=== PATIENT | male | born 1960 | race Caucasian/White ===

== ENCOUNTER 2021-06-08 23:39 | Inpatient (IN) | payer BC ==
[2021-06-09] MEDS ORDERED: cefTRIAXone 2 GM Vial IV ONE
[2021-06-09] MEDS ORDERED: Sodium Chloride 0.9% 1,000 ML IV ONE
[2021-06-09 00:28] LABS: ANION GAP 9.6 meq/L (7-15); CHLORIDE,CL 105 mmol/L (98-107); SODIUM,NA 140 mmol/L (136-145)
[2021-06-09 00:32] LABS: CORONAVIRUS COVID-19 NAA NEGATIVE (NEGATIVE); RESPIRATORY SYNCYTIAL VIR NAA NEGATIVE (NEGATIVE)
[2021-06-09] MEDS ORDERED: Polyethylene Glycol 3350 Powder 17 GM Packet PO PRN (01:55)
[2021-06-09] MEDS ORDERED: Ondansetron 4 MG Tab.DIS PO PRN (01:55)
[2021-06-09] MEDS ORDERED: Albuterol/Ipratropium 3.0-0.5 MG/3 ML Neb Soln NEB PRN (01:55)
[2021-06-09] MEDS ORDERED: VANCOmycin 1.75 GM/350 ML 1.75 GM in Premix Bag 1 BAG IV SCH (02:00)
[2021-06-09] MEDS: Furosemide 40 MG/4 ML VIAL IVPUSH SCH ×3 (02:25→17:45)
[2021-06-09] MEDS: Sodium Chloride 0.9% 10 ML Syringe FLUSH PRN (02:26)
[2021-06-09] MEDS ORDERED: AMLODIPINE PO SCH (08:00)
[2021-06-09] MEDS ORDERED: Non-Formulary Medication 1 Each (Metoprolol Succinate [Metoprolol Succinate] 100 MG Tab.Er PO SCH (08:00)
[2021-06-09] MEDS ORDERED: BENAZEPRIL PO SCH (08:00)
[2021-06-09] MEDS ORDERED: Non-Formulary Medication 1 Each (Rivaroxaban [Xarelto] 20 MG Tablet) PO SCH (08:00)
[2021-06-09 08:03] LABS: ANION GAP 10.2 meq/L (7-15); CHLORIDE,CL 105 mmol/L (98-107); SODIUM,NA 141 mmol/L (136-145)
[2021-06-09] MEDS: Rivaroxaban 10 MG Tab PO SCH (10:33)
[2021-06-09] MEDS: Lisinopril 20 MG Tab PO SCH (10:33)
[2021-06-09] MEDS: amLODIPine 5 MG Tab PO SCH (10:34)
[2021-06-09] MEDS: Metoprolol Succinate 50 MG Tab.ER PO SCH (10:34)
[2021-06-09] MEDS: Magnesium Oxide 400 MG Tab PO SCH (18:32)
[2021-06-09] MEDS: Potassium Chloride 20 MEQ Tab.ER PO SCH (18:32)
[2021-06-09] MEDS: atorvaSTATin 10 MG Tab PO SCH (20:07)
[2021-06-10] MEDS: Sodium Chloride 0.9% 10 ML Syringe FLUSH PRN ×2 (02:19→07:39)
[2021-06-10] MEDS: Furosemide 40 MG/4 ML VIAL IVPUSH SCH ×3 (02:19→18:02)
[2021-06-10] MEDS: Rivaroxaban 10 MG Tab PO SCH (07:39)
[2021-06-10] MEDS: amLODIPine 5 MG Tab PO SCH (07:40)
[2021-06-10] MEDS: Metoprolol Succinate 50 MG Tab.ER PO SCH (07:40)
[2021-06-10] MEDS: Magnesium Oxide 400 MG Tab PO SCH ×2 (07:41→18:02)
[2021-06-10] MEDS: Lisinopril 20 MG Tab PO SCH (07:41)
[2021-06-10] MEDS: Potassium Chloride 20 MEQ Tab.ER PO SCH (07:41)
[2021-06-10] MEDS: atorvaSTATin 10 MG Tab PO SCH (19:37)
[2021-06-11] MEDS: Metoprolol Succinate 50 MG Tab.ER PO SCH (07:10)
[2021-06-11] MEDS: Rivaroxaban 10 MG Tab PO SCH (07:11)
[2021-06-11] MEDS: amLODIPine 5 MG Tab PO SCH (07:11)
[2021-06-11] MEDS: Lisinopril 20 MG Tab PO SCH (07:12)
[2021-06-11] MEDS: Magnesium Oxide 400 MG Tab PO SCH (07:13)
[2021-06-11] MEDS: Furosemide 40 MG/4 ML VIAL IVPUSH SCH (07:14)
[2021-06-11] MEDS: Sodium Chloride 0.9% 10 ML Syringe FLUSH PRN (07:15)
[2021-06-11 08:07] LABS: ANION GAP 9.9 meq/L (7-15); CHLORIDE,CL 106 mmol/L (98-107); SODIUM,NA 142 mmol/L (136-145)
== END 2021-06-11 13:40 | disposition home or self-care (01) | DRG 194 ==
LOC: SUPCPDRO 23:39 → LL.ED 23:39 → LL.MS 06-09 01:43
PROVIDERS: ADMIT Hospitalist; ATTEND Hospitalist
DX: I11.0 Hypertensive heart disease with heart failure (principal); I50.33 Acute on chronic diastolic (congestive) heart failure; J96.01 Acute respiratory failure with hypoxia; I25.10 Atherosclerotic heart disease of native coronary artery without angina pectoris; J44.9 Chronic obstructive pulmonary disease, unspecified; E66.9 Obesity, unspecified; E78.2 Mixed hyperlipidemia; I25.2 Old myocardial infarction; Z86.718 Personal history of other venous thrombosis and embolism; Z79.01 Long term (current) use of anticoagulants; Z95.5 Presence of coronary angioplasty implant and graft; Z68.38 Body mass index [BMI] 38.0-38.9, adult; Z20.822 Contact with and (suspected) exposure to COVID-19
CPT/HCPCS: 0241U; 36415; 71046; 80048; 80053; 81001; 83605; 83735; 83880; 84484; 85025; 85027; 85379; 85610; 86140; 87040; 93005; 93010; 93970; 96365; 97161-GP; 97530-GP; 99285; 99285-25; A9270-GY; J0696; J1940; J7030